=== PATIENT | male | born 1980 | race Caucasian/White ===

== ENCOUNTER 2021-09-04 16:16 | Emergency (ER) | payer OTHER ==
[2021-09-04] MEDS ORDERED: IBUPROFEN600 MG PO (18:13)
[2021-09-04] MEDS ORDERED: BACTRIM DS TAB1 EACH PO (18:13)
== END 2021-09-04 18:46 | disposition home or self-care (01) ==
LOC: ER1 16:16
DX: L03.012 Cellulitis of left finger (principal); F17.210 Nicotine dependence, cigarettes, uncomplicated
CPT/HCPCS: 73140; 96372; 99283; J0690